=== PATIENT | female | born 1945 | race Caucasian/White ===

== ENCOUNTER 2017-06-30 17:48 | Emergency (ER) | payer OTHER ==
[~2017-06-30] VITALS: Ht 170.2 cm; Wt 111.6 kg
[~2017-06-30 17:48] MED LIST: ACTOS15 MG PO; ACTOS30 MG PO; ASPIRIN EC325 MG PO; Ativan PO; BACTRIM,SEPT1 TABLET PO; CARVEDILOL6.25 MG PO; CELEBREX200 MG PO; COZAAR25 MG PO; CRESTOR10 MG PO; CRESTOR20 MG PO; CYMBALTA30 MG PO; Coumadin Protocol PO; Cozaar PO; Cymbalta PO; EFFIENT10 MG PO; ESTRACE0.5 MG PO; ESTRACE1 MG PO; Estrace PO; FUROSEMIDE40 MG PO; Feosol PO; GABAPENTIN300 MG PO; GLIPIZIDE10 MG PO; GLUCOTROL XL10 MG PO; HYDROCHLOROTHIA25 MG PO; HYDROCODON-ACE1 EAC8 PO; HYDROCODON-ACE1 EAC9 PO; HYDROXYCHLOROQ200 MG PO; LEVAQUIN250 MG PO; LORAZEPAM0.5 MG PO; LOSARTAN POTASS25 MG PO; LOSARTAN POTASS50 MG PO; METAXALONE800 MG PO; METOPROLOL SUCC50 MG PO; NABI650T PO; NEURONTIN300 MG PO; NITROSTAT0.4 MG SL; NORCO 10/3251 TABLET PO; NORCO 5/3251 TABLET PO; SENNA LAX8.6 MG PO; SPIRONOLACTONE25 MG PO; Senokot S,Pericolace PO; TOPROL XL25 MG PO; TRADJENTA5 MG PO; TURMERIC500 MG PO; Toprol XL PO; Tums PO; Vicodin,Norco 5/325 PO; Vitamin D PO; Zantac PO
[2017-06-30 20:11] VITALS: BP 144/84
== END 2017-06-30 20:12 | disposition home or self-care (01) ==
LOC: EME 17:48
DX: R51 Headache (principal); I10 Essential (primary) hypertension; E11.9 Type 2 diabetes mellitus without complications; K21.9 Gastro-esophageal reflux disease without esophagitis; F41.9 Anxiety disorder, unspecified; I25.2 Old myocardial infarction; Z98.890 Other specified postprocedural states; Z88.5 Allergy status to narcotic agent; Z88.6 Allergy status to analgesic agent; Z88.1 Allergy status to other antibiotic agents; Z88.8 Allergy status to other drugs, medicaments and biological substances
CPT/HCPCS: 70450; 99281; 99284